=== PATIENT | male | born 1985 | race Caucasian/White ===

== ENCOUNTER 2017-05-05 11:29 | Emergency (ER) | payer OTHER ==
[2017-05-05] MEDS ORDERED: DEXAMETHASONE 10 MG/ML VIAL PO STA (13:40)
[2017-05-05] MEDS ORDERED: NEOMYCIN/POLYMYX/DEXAMETH OPHTH DROPS 5 ML RIGHTEYE STA (13:40)
--- NOTE | 2017-05-05 13:44 | ED Physician Documentation ---
PD HPI HEENT - Stated complaint Stated Complaint: R RED SWOLLEN EYE - Chief complaint Chief Complaint: Heent - History obtained from History obtained from: Patient - History of Present Illness Timing - onset: How many days ago (4) Timing - duration: Days (4) Timing - details: Gradual onset, Still present, Waxing and waning Location: Sinuses, Other (right eye) Improves: Medication Associated symptoms: Congestion, Rhinorrhea, Cough Similar symptoms before: Diagnosis (OM) Recently seen: Not recently seen - Additional information Additional information: 31-year-old male has had a cough and congestion for the past 4 days and he is now developed some redness to his right eye which was present 4 days ago worse and then improved and is worsened again. He has had his eye matted enough that it was held shut yesterday morning and this morning. He has 2 children at home for ill with otitis media. Review of Systems Constitutional: denies: Fever, Chills, Myalgias Eyes: reports: Discharge, Irritation. denies: Decreased vision Ears: denies: Ear pain Nose: reports: Rhinorrhea / runny nose, Congestion Throat: denies: Sore throat Cardiac: denies: Chest pain / pressure, Palpitations Respiratory: reports: Cough. denies: Dyspnea GI: denies: Vomiting PD PAST MEDICAL HISTORY - Past Medical History Past Medical History: No - Present Medications Home Medications: Ambulatory Orders Medication Instructions Recorded Confirmed Azithromycin [Zithromax] 250 mg PO DAILY #6 tablet 05/05/17 Neomycin/Poly/Dex Ophth Drops 1 drops RIGHTEYE QID #1 bottle 05/05/17 [Maxitrol Ophth Drops] - Allergies Allergies/Adverse Reactions: Allergies Allergy/AdvReac Type Severity Reaction Status Date / Time No Known Drug Allergies Allergy Verified 05/05/17 11:38 - Social History Does the pt smoke?: No Smoking Status: Never smoker PD ED PE NORMAL - Vitals Vital signs reviewed: Yes (Hypertensive) - General General: Alert and oriented X 3, No acute distress, Well developed/nourished - HEENT HEENT: Atraumatic, PERRL, EOMI, Other (The right TM shows some tympanosclerosis there is not any information involved. The left TM is inflamed with distortion of the landmarks. The pharynx is unremarkable the right eye has conjunctival injection on the sclera and inflammation of the lower conjunctival sac. Left is clear.) - Neck Neck: Supple, no meningeal sign, No bony TTP - Cardiac Cardiac: RRR, No murmur - Respiratory Respiratory: No respiratory distress, Clear bilaterally - Derm Derm: Normal color, Warm and dry, No rash - Extremities Extremities: No deformity, No edema - Neuro Neuro: No motor deficit, No sensory deficit Eye Opening: Spontaneous Motor: Obeys Commands Verbal: Oriented GCS Score: 15 - Psych Psych: Normal mood, Normal affect Results - Vitals Vitals: Vital Signs - 24 hr 05/05/17 11:36 Temperature 36.8 C Heart Rate 80 Respiratory 16 Rate Blood Pressure 134/84 H O2 Saturation 100 Oxygen O2 Source Room air PD MEDICAL DECISION MAKING - ED course Complexity details: considered differential, d/w patient ED course: 31-year-old male with acute conjunctivitis in the right eye has smooth conjunctival and has had a lot of puslike drainage. I am concerned about bacterial conjunctivitis. He does have otitis in the left as well.Here in the emergency department is treated with dexamethasone 10 mg orally Maxitrol eye drops and we will put him on some azithromycin. Departure - Departure Disposition: 01 Home, Self Care Clinical Impression: Conjunctivitis Qualifiers: Conjunctivitis type: acute Acute conjunctivitis type: bacterial Laterality: right Qualified Code(s): H10.31 - Unspecified acute conjunctivitis, right eye Otitis media Qualifiers: Otitis media type: suppurative Chronicity: acute Laterality: left Recurrence: not specified as recurrent Spontaneous tympanic membrane rupture: without spontaneous rupture Qualified Code(s): H66.002 - Acute suppurative otitis media without spontaneous rupture of ear drum, left ear Condition: Stable Instructions: ED Otitis Media Acute Adult, ED Conjunctivitis Bacterial Follow-Up: [facility] [Provider Group] Prescriptions: Azithromycin [Zithromax] 250 mg PO DAILY #6 tablet Neomycin/Poly/Dex Ophth Drops [Maxitrol Ophth Drops] 1 drops RIGHTEYE QID #1 bottle
[2017-05-05 14:00] VITALS: BP 117/84
== END 2017-05-05 13:58 | disposition home or self-care (01) ==
LOC: ED 11:29
DX: H10.31 Unspecified acute conjunctivitis, right eye (principal); H66.002 Acute suppurative otitis media without spontaneous rupture of ear drum, left ear
CPT/HCPCS: 99283; J3490